=== PATIENT | female | born 1955 | race Caucasian/White ===

== ENCOUNTER → 2020-09-02 | Outpatient (CLI) | payer MEDICARE ==
--- NOTE | 2020-09-02 16:27 | US ---
EXAMINATION TYPE: US abdomen complete DATE OF EXAM: 09/02/2020 COMPARISON: NONE CLINICAL HISTORY: R10.11 Right upper quadrant pain. RUQ pain x couple months EXAM MEASUREMENTS: Liver Length: 13.9 cm Gallbladder Wall: 0.1 cm CBD: 0.1 cm Spleen: 8.8 cm Right Kidney: 9.2 x 3.4 x 3.9 cm Left Kidney: 9.0 x 4.1 x 4.7 cm Pancreas: visualized portions wnl, limited by overlying midline bowel gas Liver: wnl Gallbladder: wnl Evidence for sonographic Hollis's sign: yes CBD: wnl Spleen: wnl Right Kidney: wnl Left Kidney: wnl Upper IVC: wnl Abd Aorta: wnl IMPRESSION: 1. Normal abdomen ultrasound
== END | disposition home or self-care (01) ==
LOC: RADUSWWP 07:31
PROVIDERS: ATTEND Internal Medicine
DX: R10.11 Right upper quadrant pain (principal)
CPT/HCPCS: 76700